=== PATIENT | male | born 1990 | race Caucasian/White ===

== ENCOUNTER 2021-12-02 02:18 | Emergency (ER) | payer OTHER ==
[~2021-12-02] VITALS: Ht 177.8 cm; Wt 104.3 kg
[2021-12-02 03:46] VITALS: BP 116/75
[2021-12-02] MEDS ORDERED: FAMO20TA8 PO (03:51)
[2021-12-02] MEDS ORDERED: PRED20TA PO (03:51)
[2021-12-02] MEDS ORDERED: predniSONE 20 MG TABLET ONE (03:51)
[2021-12-02] MEDS ORDERED: IBUP-1953 PO (03:51)
[2021-12-02] MEDS ORDERED: DIPH25CA83 PO (03:51)
[2021-12-02] MEDS ORDERED: diphenhydrAMINE HCL 25 MG CAPSULE ONE (03:51)
[2021-12-02] MEDS ORDERED: IBUPROFEN 600 MG TABLET ONE (03:52)
[2021-12-02] MEDS ORDERED: FAMOTIDINE (20 MG) 20 MG TABLET ONE (03:52)
[2021-12-02] MEDS ORDERED: diphenhydrAMINE HCL 25 MG CAPSULE PO ONE (04:00)
[2021-12-02] MEDS ORDERED: predniSONE 50 MG TABLET PO ONE (04:00)
[2021-12-02] MEDS ORDERED: FAMOTIDINE (20 MG) 20 MG TABLET PO ONE (04:00)
[2021-12-02] MEDS ORDERED: IBUPROFEN 600 MG TABLET PO ONE (04:00)
== END 2021-12-02 03:59 | disposition home or self-care (01) ==
LOC: ER 02:30
DX: S50.862A Insect bite (nonvenomous) of left forearm, initial encounter (principal); F17.200 Nicotine dependence, unspecified, uncomplicated; Z79.899 Other long term (current) drug therapy; W57.XXXA Bitten or stung by nonvenomous insect and other nonvenomous arthropods, initial encounter; Y93.89 Activity, other specified; Y92.89 Other specified places as the place of occurrence of the external cause; Y99.8 Other external cause status
CPT/HCPCS: 99284; J7512; Q0163